=== PATIENT | female | born 1940 | race Caucasian/White ===

== ENCOUNTER 2018-10-21 17:25 | Emergency (ER) | payer OTHER ==
[~2018-10-21] VITALS: Ht 167.6 cm; Wt 106.6 kg
[2018-10-21 17:39] VITALS: BP 150/40; Ht 167.6 cm; Wt 106.6 kg
== END 2018-10-21 19:20 | disposition home or self-care (01) ==
LOC: ED 17:25
DX: Z45.2 Encounter for adjustment and management of vascular access device (principal); N39.0 Urinary tract infection, site not specified